=== PATIENT | male | born 1985 | race Caucasian/White ===

== ENCOUNTER 2020-10-24 06:14 | Emergency (ER) | payer MEDICARE ==
[~2020-10-24] VITALS: Ht 182.9 cm; Wt 88.6 kg
[2020-10-24] MEDS ORDERED: LAMI1TAB9 PO (06:25)
[2020-10-24] MEDS ORDERED: METAL LOCK LOOP XX ONE (06:36)
[2020-10-24] MEDS ORDERED: LATU20TA PO (06:42)
[2020-10-24 06:56] LABS: BASO # 0.1 10^3/uL (0.0-0.2); BASO % 0.8 % (0.0-1.0); EOS # 0.2 10^3/uL (0.0-0.5); EOS % 2.4 % (0.0-3.0); HEMATOCRIT 38.4 % (42.0-52.0); HEMOGLOBIN 12.8 g/dl (13.5-17.5); LYMPH # 2.1 10^3/uL (1.5-5.0); LYMPH % 22.3 % (24.0-44.0); MEAN CORPUSCULAR HEMOGLOBIN 28.4 pg (27.0-33.0); MEAN CORPUSCULAR HGB CONC 33.3 g/dl (32.0-36.5); MEAN CORPUSCULAR VOLUME 85.3 fl (80.0-96.0); MONO # 0.8 10^3/uL (0.0-0.8); MONO % 8.1 % (2.0-8.0); NEUTROPHILS # 6.2 10^3/uL (1.5-8.5); PLATELET COUNT, AUTOMATED 296 10^3/uL (150-450); WHITE BLOOD COUNT 9.3 10^3/uL (4.0-10.0)
--- NOTE | 2020-10-24 07:04 | REPVR ---
PROCEDURE INFORMATION: Exam: XR Chest Exam date and time: 10/24/2020 6:31 AM Age: 34 years old Clinical indication: Chest pain; Type not specified TECHNIQUE: Imaging protocol: XR of the chest. Views: 1 view. COMPARISON: No relevant prior studies available. FINDINGS: Lungs: Unremarkable. No consolidation. Pleural spaces: Unremarkable. No pleural effusion. No pneumothorax. Heart/Mediastinum: Unremarkable. No cardiomegaly. Bones/joints: Unremarkable. IMPRESSION: No acute findings. Electronically signed by: Liz Pantoja On 10/24/2020 07:05:04 AM
[2020-10-24 07:11] LABS: BLOOD UREA NITROGEN 10 MG/DL (7-18); CALCIUM LEVEL 9.5 MG/DL (8.5-10.1); CARBON DIOXIDE LEVEL 30 MEQ/L (21-32); CHLORIDE LEVEL 107 MEQ/L (98-107); CREATININE FOR GFR 0.99 MG/DL (0.70-1.30); GLOMERULAR FILTRATION RATE > 60.0 (>60); GLUCOSE, FASTING 81 MG/DL (70-100); POTASSIUM SERUM 3.8 MEQ/L (3.5-5.1); SODIUM LEVEL 142 MEQ/L (136-145)
[2020-10-24] MEDS ORDERED: GI COCKTAIL 50ML BTL(HYOSCYAMINE/MAALOX/LIDOCAINE VISCOUS)(1:3:1) PO ONE (07:55)
[2020-10-24 09:26] VITALS: BP 110/59
--- NOTE | 2020-10-24 09:37 | ECGEPIP ---
[facility] [place] - ED Test Date: 2020-10-24 Pat Name: ELLIE LYMAN Department: Room: - Gender: Male Lubrication Technician: JOHN : 1985 Requested By: VIDA Delgado Order Number: [id number] Reading MD: Damon Cordon Measurements Intervals [place] Rate: 79 P: 54 WV: 162 QRS: 35 QRSD: 88 T: 48 QT: 358 QTc: 410 Interpretive Statements Normal sinus rhythm Comparison tracing not on file Electronically Signed on 10-24-2020 9:36:56 EDT by Damon Cordon
== END 2020-10-24 09:29 | disposition home or self-care (01) ==
LOC: M ED 06:14
DX: R07.89 Other chest pain (principal); K21.9 Gastro-esophageal reflux disease without esophagitis; F41.0 Panic disorder [episodic paroxysmal anxiety]; Z87.09 Personal history of other diseases of the respiratory system; Z87.820 Personal history of traumatic brain injury; F17.290 Nicotine dependence, other tobacco product, uncomplicated; Z88.8 Allergy status to other drugs, medicaments and biological substances